=== PATIENT | female | born 1955 | race Caucasian/White ===

== ENCOUNTER → 2022-06-18 16:38 | Outpatient (BNVA) | payer MEDICAID, SELFPAY | PROVIDERS: Visit Provider Nurse Practitioner Family | DX: R68.89 Other general symptoms and signs (principal); U07.1 COVID-19 | CPT/HCPCS: 87426 ==

== ENCOUNTER → 2022-10-10 13:29 | Outpatient (BNVA) | payer MEDICARE, SELFPAY | PROVIDERS: PCP Nurse Practitioner Family; Visit Provider Surgery | DX: R14.2 Eructation (principal); Z80.0 Family history of malignant neoplasm of digestive organs | CPT/HCPCS: 99203 ==

== ENCOUNTER 2022-11-02 06:09 | Day surgery (SDC) | payer MEDICARE, SELFPAY ==
[2022-11-02] VITALS (10 sets, daily range): BP systolic 126–168; BP diastolic 79–99; PULSE 67–84; RESP 14–18; TEMP 36.1–36.3; O2SAT 96–99
[2022-11-02] MEDS: sodium chloride 0.9% 1,000 ML 30 ML IV (06:35)
--- NOTE | 2022-11-02 07:11 | ANES.PREANE2 ---
Pre-Anesthetic Assessment Height/Weight: Height 1.68 m Temp Pulse Resp BP Pulse Ox O2 Del Method 97.3 F L 84 18 139/85 97 Room Air 11/02/22 06:24 11/02/22 06:36 11/02/22 06:36 11/02/22 06:36 11/02/22 06:36 11/02/22 06:36 Preop Diagnosis: Family history of colon CA, Eructation. Operation Date: 11/02/22 08:00 Proposed Procedures p 54284 colonoscopy, [address]645 EGD : R14.2, z80.0(Not Applicable) - Iván Foy DO s Colonoscopy(Not Applicable) - Iván Foy DO Familial anesthetic complications: none Was Beta Roque taken within 24 hours: N/A Was Clonidine taken within 24 hours: N/A Last intake: Intake Last Liquid Date 11/01/22 Last Liquid Time 22:30 Last Solid Date 10/31/22 Social Alcohol (1-2 drinks per month) Exam alert, oriented x 3, clear to auscultation bilaterally and regular rate & rhythm Airway Submandibular: within normal limits Cervical ROM: within normal limits Mallampati: Class III Dentition: chipped Comments: Comments: TMJ* history of jaw locking open at dentist. Pulmonary None reported CV/HEM Hypertension (running SBP 140's per patient on no medication- educated.) and None reported Chronic Renal Insufficiency Hepatic None reported GI Eructation Metabolic None reported Musc/skel None reported Neuropsych None reported Anesthetic Plan ASA status: 2 Anesthesia: MAC Medications/Allergies Home Medications Medication Instructions Recorded Confirmed Last Taken Type phentermine 15 mg capsule 15 mg PO DAILY 10/10/22 10/31/22 10/25/22 History Allergies Allergy/AdvReac Type Severity Reaction Status Date / Time No Known Allergies Allergy Verified 11/02/22 06:24 Current Medications Generic Name Dose Route Start Last Admin Trade Name Freq PRN Reason Stop Dose Admin Sodium Chloride 1,000 mls @ 30 mls/hr 11/02/22 06:30 11/02/22 06:35 Sodium Chloride 0.9% IV 11/03/22 06:29 30 mls/hr .Q24H YOSEF Administration PFSH Anesthesia Surgical History Hx of hysterectomy 1998 Family History Mother Cancer colon Father Heart disease Heart attack Sister Cancer lung cancer Unknown Cancer breast cancer Social History Smoking and tobacco status: never smoked Alcohol intake: current Alcohol intake frequency: holidays/special occasions only Data Anesthesia Cardiac Studies: No Data to Display
--- NOTE | 2022-11-02 07:57 | W.PM.OPSUD ---
Surgery/Procedure H&P Update DATE OF PROCEDURE: November 02, 2022 DATE H&P PERFORMED: 10/10/22 H&P UPDATE INFORMATION: I have reviewed H&P completed within last 30 days, I have examined patient prior to procedure and No changes to prior documentation PREOP DIAGNOSIS: Family history of colon CA PLANNED PROCEDURE: Operation Date: 11/02/22 08:00 Proposed Procedures p 40003 colonoscopy, [address] EGD : R14.2, z80.0(Not Applicable) - DO otto Leal Colonoscopy(Not Applicable) - Iván Foy DO
[2022-11-02] MEDS: ipratropium-albuterol 3 mL Neb INHALATION (09:08)
--- NOTE | 2022-11-02 17:18 | ANE.PACU2 ---
Inpatient post-anesthesia follow up: Airway intact: Yes Vital signs: Temperature 97 F Pulse Rate 71 Respiratory Rate 16 Blood Pressure 138/79 Pulse Oximetry 98 Oxygen Delivery Me thod Room Air Oxygen Flow Rate Fraction of Inspir ed Oxygen Hydration adequate: Yes Nausea and vomiting: No Pain level: 1 Mental status: Baseline
== END 2022-11-02 10:50 | disposition home or self-care (01) ==
PROVIDERS: PCP Nurse Practitioner Family; Visit Provider Surgery
PROC: 0DJ08ZZ Inspection of Upper Intestinal Tract, Via Natural or Artificial Opening Endoscopic (ICD-10-PCS; CPT 43235; principal; 2022-11-02 08:00)
PROC: 0DJD8ZZ Inspection of Lower Intestinal Tract, Via Natural or Artificial Opening Endoscopic (ICD-10-PCS; CPT 45378; 2022-11-02 08:00)
DX: R14.2 Eructation (principal); Z80.0 Family history of malignant neoplasm of digestive organs; D12.2 Benign neoplasm of ascending colon; K21.9 Gastro-esophageal reflux disease without esophagitis; I10 Essential (primary) hypertension; D12.0 Benign neoplasm of cecum
CPT/HCPCS: 43239; 45385; 88305; 94640; J2704; J7030

== ENCOUNTER → 2022-11-21 16:17 | Outpatient (BNVA) | payer MEDICARE, SELFPAY | PROVIDERS: PCP Nurse Practitioner Family; Visit Provider Surgery | DX: R10.9 Unspecified abdominal pain (principal) | CPT/HCPCS: 99212 ==

== ENCOUNTER 2022-12-13 09:20 | Outpatient (CLI) | payer MEDICARE, SELFPAY ==
--- NOTE | 2022-12-13 10:00 | NM_ITS ---
WS: [id number] NUCLEAR MEDICINE HIDA SCAN CLINICAL INFORMATION: abd pain TECHNIQUE: Following intravenous administration of mCi of technetium 99m mebrofenin, images of the ab domen were obtained over the course of 60 minutes. Next, gallbladder ejection fraction was determined by obtaining preprandial and one-hour postprandial images of the gallbladder following oral ingestio n of Ensure. COMPARISON: None. FINDINGS: Hepatomegaly. Normal hepatic uptake at 5 minutes. Normal hepatic excretion. Gallbladder is visualized by 15 minutes. No evidence of acute cholecystitis. Normal common bile duct and small bowel activity. Decreased gallbladder ejection fraction 33%. Findin gs consistent with gallbladder dysfunction. Recommend correlation for chronic cholecystitis. NM/NM hepatobiliary w phar* [id number] IMPRESSION: Decreased gallbladder ejection fraction 33%. Findings compatible with gallbladd er dysfunction. Recommend correlation for chronic cholecystitis.
== END 2022-12-13 09:21 | disposition home or self-care (01) ==
LOC: RAD 09:21
PROVIDERS: PCP Nurse Practitioner Family; Visit Provider Surgery
DX: R10.9 Unspecified abdominal pain (principal)
CPT/HCPCS: 78227; A9537

== ENCOUNTER → 2022-12-26 14:51 | Outpatient (BNVA) | payer MEDICARE, SELFPAY | PROVIDERS: PCP Nurse Practitioner Family; Visit Provider Surgery | DX: R14.2 Eructation (principal); K82.8 Other specified diseases of gallbladder | CPT/HCPCS: 99213 ==

== ENCOUNTER 2023-02-12 07:46 | Day surgery (SDC) | payer MEDICARE, SELFPAY ==
[2023-02-12] VITALS (11 sets, daily range): BP systolic 137–175; BP diastolic 73–101; PULSE 56–81; RESP 16–18; TEMP 36.1–36.5; O2SAT 94–99; BMI 30.7
--- NOTE | 2023-02-12 08:04 | PM.HP ---
Providers/Chief Complaint Primary Care Provider: JAE Benitez History of Present Illness Pauline Griffin is a 67 year old female Review of Systems General: Reports: 10 or more systems reviewed and unremarkable except in HPI and below Medications/Allergies Home Medications Medication Instructions Recorded Confirmed Last Taken Type phentermine 15 mg capsule 15 mg PO DAILY 10/10/22 02/09/23 02/04/23 History Allergies Allergy/AdvReac Type Severity Reaction Status Date / Time No Known Allergies Allergy Verified 02/12/23 07:54 PFSH Acute PFSH: Surgical History Hx of hysterectomy 1998 Family History Mother Cancer colon Father Heart disease Heart attack Sister Cancer lung cancer Unknown Cancer breast cancer Social History Smoking and tobacco status: never smoked Alcohol intake: current Alcohol intake frequency: holidays/special occasions only Vitals/I&O/Wt Last Vital Signs Pulse 74 02/12/23 07:55 Resp 18 02/12/23 07:55 BP 175/101 02/12/23 07:55 Pulse Ox 98 02/12/23 07:55 O2 Del Method Room Air 02/12/23 07:55 Weight last 48 hrs Weight 190 lb A&P Assessment and plan (1) Biliary dyskinesia: Plan Laparoscopic cholecystectomy Attestations Medical Necessity Statement*: Home Coding Level of Care Code Acute Code for Chg Fwd Diagnoses Biliary dyskinesia K82.8
[2023-02-12] MEDS: sodium chloride 0.9% 1,000 ML 30 ML IV (08:07)
--- NOTE | 2023-02-12 08:21 | ANES.PREANE2 ---
Pre-Anesthetic Assessment Height/Weight: Height 1.68 m Weight 86.183 kg Pulse Resp BP Pulse Ox O2 Del Method 74 18 175/101 98 Room Air 02/12/23 07:55 02/12/23 07:55 02/12/23 07:55 02/12/23 07:55 02/12/23 07:55 Operation Date: 02/12/23 09:20 Proposed Procedures p [id number] lap [place] K82.8(Not Applicable) - Iván Foy DO Familial anesthetic complications: None Was Beta Roque taken within 24 hours: N/A Was Clonidine taken within 24 hours: N/A Last intake: Intake Last Liquid Date 02/11/23 Last Liquid Time 22:30 Last Solid Date 02/11/23 Last Solid Time 20:30 Social No alcohol and No tobacco Exam alert, oriented x 3, clear to auscultation bilaterally and regular rate & rhythm Airway Mallampati: Class II Dentition: chipped Comments: Comments: TMJ CV/HEM Hypertension (unmedicated) Anesthetic Plan ASA status: 2 Anesthesia: General Risk of > 500 ml blood loss (7ml/kg in children): No Medications/Allergies Home Medications Medication Instructions Recorded Confirmed Last Taken Type phentermine 15 mg capsule 15 mg PO DAILY 10/10/22 02/09/23 02/04/23 History Allergies Allergy/AdvReac Type Severity Reaction Status Date / Time No Known Allergies Allergy Verified 02/12/23 07:54 Current Medications Generic Name Dose Route Start Last Admin Trade Name Freq PRN Reason Stop Dose Admin Sodium Chloride 1,000 mls @ 30 mls/hr 02/12/23 08:00 02/12/23 08:07 Sodium Chloride 0.9% IV 02/13/23 07:59 30 mls/hr .Q24H YOSEF Administration PFSH Anesthesia Surgical History Hx of hysterectomy 1998 Family History Mother Cancer colon Father Heart disease Heart attack Sister Cancer lung cancer Unknown Cancer breast cancer Social History Smoking and tobacco status: never smoked Alcohol intake: current Alcohol intake frequency: holidays/special occasions only Data Anesthesia Cardiac Studies: No Data to Display
[2023-02-12] MEDS: ceFAZolin 2,000 MG in sodium chloride 0.9% (plus) 50 ML 100 MG IV (09:44)
[2023-02-12] MEDS: lidocaine-epi 2% 20 mL INJ 4 ML INJECTION (10:18)
--- NOTE | 2023-02-12 10:26 | P.OP_ITS ---
Operative Report Date of procedure: February 12, 2023 Pre-op diagnosis: Biliary dyskinesia Post-op diagnosis: same Procedure done: Laparoscopic cholecystectomy Specimens removed/disposition: Gallbladder Surgeon: Dr. Iván oFy DO Anesthesia: General Estimated blood loss (mL): 5 Complications: None apparent Brief History: This very pleasant 67-year-old female who was found to have biliary dyskinesia. Laparoscopic cholecystectomy was indicated. The risk benefits were explained and documented. Procedure: Patient was wheeled into the operative room and placed on the OR table in a supine position. Abdomen was inspected prepped and draped in usual sterile fashion. Time-out was performed and all present were in agreement. A 15 blade scalp was used to make a stab incision in the left upper quadrant and intra- abdominal insufflation was achieved using a Veress needle. After localizing the tissue incisions were made and a 5 millimeter trocar was placed into the umbilicus as well as 2 in the right upper quadrant. A 12 millimeter trocar was placed in the epigastrium. Gallbladder was grasped and elevated. The triangle of Calot was carefully dissected using blunt dissection and electrocautery until the triangle of Calot clearly identified. The cystic duct was clipped proximally and double clipped distally. The duct was then ligated proximally. The cystic artery was doubly clipped and ligated. The gallbladder was then removed from the liver bed using electrocautery. The gallbladder was removed from the abdomen using an Endo-Catch bag through the epigastric incision. The liver bed was inspected and no bleeding was seen. The abdomen was irrigated and suctioned. All ports removed. Skin was washed and dried. Incisions were closed with 4-0 Monocryl in a subcuticular interrupted fashion. Skin glue was applied. Patient tolerated the procedure well.
--- NOTE | 2023-02-12 11:15 | ANE.PACU2 ---
Inpatient post-anesthesia follow up: Airway intact: Yes Vital signs: Temperature 97.2 F Pulse Rate 62 Respiratory Rate 16 Blood Pressure 156/76 Pulse Oximetry 98 Oxygen Delivery Me thod Room Air Oxygen Flow Rate Fraction of Inspir ed Oxygen Hydration adequate: Yes Nausea and vomiting: No Pain level: 1 Mental status: Baseline
[2023-02-12] MEDS: HYDROcodone-acetaminophen 10-325 mg Tablet 1 TAB PO (11:33)
== END 2023-02-12 13:13 | disposition home or self-care (01) ==
PROVIDERS: PCP Nurse Practitioner Family; Visit Provider Surgery
PROC: 0FT44ZZ Resection of Gallbladder, Percutaneous Endoscopic Approach (ICD-10-PCS; CPT 47562; principal; 2023-02-12 09:10)
DX: K80.10 Calculus of gallbladder with chronic cholecystitis without obstruction (principal); I10 Essential (primary) hypertension
CPT/HCPCS: 47562; 88304; J0131; J0690; J1100; J1200; J1885; J2250; J2405; J2710; J3010; J3490; J7030

== ENCOUNTER → 2023-03-14 15:13 | Outpatient (BNVA) | payer MEDICARE, SELFPAY | PROVIDERS: PCP Nurse Practitioner Family; Visit Provider Surgery | DX: R14.2 Eructation (principal); Z90.49 Acquired absence of other specified parts of digestive tract; Z98.890 Other specified postprocedural states | CPT/HCPCS: 99024 ==

== ENCOUNTER → 2023-05-01 14:54 | Outpatient (BNVA) | payer MEDICARE, SELFPAY | PROVIDERS: PCP Nurse Practitioner Family; Visit Provider Surgery | DX: Z90.49 Acquired absence of other specified parts of digestive tract (principal); R14.2 Eructation; Z98.890 Other specified postprocedural states | CPT/HCPCS: 99024 ==